=== PATIENT | female | born 1965 | race Caucasian/White ===

== ENCOUNTER 2023-03-18 12:21 | Emergency (ER) | payer OTHER ==
[2023-03-18 12:51] VITALS: RESP 16; TEMP 98.7
--- NOTE | 2023-03-18 15:25 | ED ---
General Adult HPI - General Chief complaint: Psychiatric Symptoms Stated complaint: Mental Health Time Seen by Provider: 03/18/23 12:39 Source: patient, EMS Mode of arrival: EMS Limitations: no limitations - History of Present Illness Initial comments: This is a 57-year-old female with a past medical history including bipolar disorder, anxiety, depression presented emergency department for suicidal ideations. The patient is reportedly homeless and stated that she has been living on the streets for several months to years. The patient stated that she has several weeks of suicidal ideation and stated that "I'm just tired of everything and living on the street." The patient stated that she does have a plan to cut her wrists and take all of her pills. The patient was however resting in bed comfortably without any further distress. The patient stated that she has never been admitted to the psychiatric hospital for evaluation. - Related Data Allergies Allergy/AdvReac Type Severity Reaction Status Date / Time No Known Allergies Allergy Verified 03/18/23 12:51 Review of Systems ROS Statement: Those systems with pertinent positive or pertinent negative responses have been documented in the HPI. ROS Other: All systems not noted in ROS Statement are negative. Past Medical History Past Medical History: Thyroid Disorder History of Any Multi-Drug Resistant Organisms: None Reported Past Psychological History: ADD/ADHD, Anxiety, Bipolar, Depression Smoking Status: Current some day smoker, Light tobacco smoker Past Alcohol Use History: None Reported, Rare Past Drug Use History: Marijuana General Exam Limitations: no limitations General appearance: alert, in no apparent distress Head exam: Present: atraumatic, normocephalic, normal inspection Eye exam: Present: normal appearance, PERRL Pupils: Present: normal accommodation ENT exam: Present: normal exam, normal oropharynx, mucous membranes moist Neck exam: Present: normal inspection, full ROM Respiratory exam: Present: normal lung sounds bilaterally Cardiovascular Exam: Present: regular rate, normal rhythm, normal heart sounds GI/Abdominal exam: Present: soft, normal bowel sounds Extremities exam: Present: normal inspection, full ROM Back exam: Present: normal inspection, full ROM Neurological exam: Present: alert, oriented X3, CN II-XII intact Psychiatric exam: Present: depressed, suicidal ideation Skin exam: Present: warm, dry Course Vital Signs 03/18/23 03/18/23 12:38 15:56 Temperature 98.7 F 98.7 F Pulse Rate 70 86 Respiratory 16 16 Rate Blood Pressure 129/95 129/76 O2 Sat by Pulse 97 98 Oximetry Medical Decision Making - Medical Decision Making Was pt. sent in by a medical professional or institution (KRISTIN Baxter, SLD TEACHER, urgent care, hospital, or senior care...) When possible be specific @ -No Did you speak to anyone other than the patient for history (EMS, parent, family, police, friend...)? What history was obtained from this source @ -No Did you review nursing and triage notes (agree or disagree)? Why? @ -I reviewed and agree with nursing and triage notes Were old charts reviewed (outside hosp., previous admission, EMS record, old EKG, old radiological studies, urgent care reports/EKG's, senior care records)? Report findings @ -No old charts were reviewed Differential Diagnosis (chest pain, altered mental status, abdominal pain women, abdominal pain men, vaginal bleeding, weakness, fever, dyspnea, syncope, headache, dizziness, GI bleed, back pain, seizure, CVA, palpatations, mental health)? @ -Acute psychosis, homelessness, depression, anxiety, suicidal ideation EKG interpreted by me (3pts min.). @ -None X-rays interpreted by me (1pt min.). @ -None done CT interpreted by me (1pt min.). @ -None done U/S interpreted by me (1pt. min.). @ -None done What testing was considered but not performed or refused? (CT, X-rays, U/S, labs)? Why? @ -None What meds were considered but not given or refused? Why? @ -None Did you discuss the management of the patient with other professionals (professionals i.e. KRISTIN Baxter, SLD TEACHER, lab, RT, psych nurse, social director, security solutions engineer, teacher, deputy probation officer, briefcase sewer)? Give summary @ -Yes, I did speak with the EPS. The patient did clear the patient to be discharged with a safety plan attempted but the patient did not agree to this safety plan and refused it. EPS did state that there was no inpatient criteria and the patient could be safely discharged. Was smoking cessation discussed for >3mins.? @ -No Was critical care preformed (if so, how long)? @ -No Were there social determinants of health that impacted care today? How? (Homelessness, low income, unemployed, alcoholism, drug addiction, transportation, low edu. Level, literacy, decrease access to med. care, [facility], rehab)? @ -Homelessness Was there de-escalation of care discussed even if they declined (Discuss DNR or withdrawal of care, Hospice)? DNR status @ -No What co-morbidities impacted this encounter? (DM, HTN, Smoking, COPD, CAD, Cancer, CVA, ARF, Chemo, Hep., AIDS, mental health diagnosis, sleep apnea, morbid obesity)? @ -Bipolar disorder, anxiety, depression Was patient admitted / discharged? Hospital course, mention meds given and route, prescriptions, significant lab abnormalities, going to OR and other pertinent info. @ -The patient was seen and evaluated in the emergency department. Physical exam, the patient was resting in bed without any acute distress. Vital signs admission were stable. The patient was medically cleared with a breath alcohol of 0. The patient was seen and evaluated by EPS and did state that the patient could be safely discharged home as there was no inpatient criteria. The patient was argumentative against this and didn't have any further needs for inpatient at this time. The patient was ultimately discharged in stable condition. Undiagnosed new problem with uncertain prognosis? @ -No Drug Therapy requiring intensive monitoring for toxicity (Heparin, Nitro, Insulin, Cardizem)? @ -No Were any procedures done? @ -No Diagnosis/symptom? @ -Anxiety, depression, homelessness Acute, or Chronic, or Acute on Chronic? @ -Chronic Uncomplicated (without systemic symptoms) or Complicated (systemic symptoms)? @ -Uncomplicated Side effects of treatment? @ -No Exacerbation, Progression, or Severe Exacerbation? @ -No Poses a threat to life or bodily function? How? (Chest pain, [place], [place], pneumonia, PE, COPD, DKA, ARF, appy, cholecystitis, CVA, Diverticulitis, Homicidal, Suicidal, threat to staff... and all critical care pts) @ -No Disposition Clinical Impression: Depression, Bipolar disorder, Homelessness Disposition: HOME SELF-CARE Condition: Stable Instructions (If sedation given, give patient instructions): Depression Management for Older Adults (ED), Suicide Prevention (ED) Is patient prescribed a controlled substance at d/c from ED?: No Referrals: Reina Gaona MD [Primary Care Provider] - 1-2 days Time of Disposition: 15:30
[2023-03-18 15:58] VITALS: BP 129/76; PULSE 86
== END 2023-03-18 21:16 | disposition home or self-care (01) ==
LOC: EC 12:21
DX: F31.9 Bipolar disorder, unspecified (principal); Z59.02 Unsheltered homelessness; F41.9 Anxiety disorder, unspecified; F17.200 Nicotine dependence, unspecified, uncomplicated; F12.90 Cannabis use, unspecified, uncomplicated
CPT/HCPCS: 82075; 99285

== ENCOUNTER 2023-03-18 16:06 | Inpatient (IN) | payer MEDICAID, OTHER ==
[2023-03-18] MEDS ORDERED: ACTIVATED CHARCOAL-SORBITOL 50 GM/240 ML BOTTLE PO STA (16:20)
[2023-03-18 17:39] LABS: Basophils # (A) 0.1 k/uL (0-0.2); Basophils % (A) 1 %; Eosinophils # (A) 0.4 k/uL (0-0.7); Eosinophils % (A) 4 %; HCT 39.6 % (34.0-46.0); HGB 13.3 gm/dL (11.4-16.0); Lymphocytes # (A) 4.2 k/uL (1.0-4.8); Lymphocytes % (A) 36 %; MCHC 33.5 g/dL (31.0-37.0); MCV 83.6 fL (80.0-100.0); Mean Platelet Volume 7.2; Monocytes # (A) 0.6 k/uL (0-1.0); Monocytes % (A) 5 %; Neutrophils % (A) 51 %; Platelet Count 306 k/uL (150-450); RBC 4.74 m/uL (3.80-5.40); RDW 15.4 % (11.5-15.5); WBC 11.7 k/uL (3.8-10.6)
[2023-03-18 17:53] LABS: ALT 58 U/L (4-34); AST 42 U/L (14-36); Acetaminophen <10.0 ug/mL; African American GFR (CKD) >90 (>60 ml/min/1.73 sqM); Albumin 4.3 g/dL (3.5-5.0); Alcohol <10 mg/dL; Alkaline Phosphatase 154 U/L (38-126); Anion Gap 12 mmol/L; Blood Urea Nitrogen 12 mg/dL (7-17); Calcium 9.7 mg/dL (8.4-10.2); Carbon Dioxide 23 mmol/L (22-30); Chloride 102 mmol/L (98-107); Glucose 128 mg/dL (74-99); Lipase 95 U/L (23-300); Magnesium 2.3 mg/dL (1.6-2.3); Non-African American GFR(CKD) 81 (>60 ml/min/1.73 sqM); Potassium 4.2 mmol/L (3.5-5.1); Salicylate <1.0 mg/dL; Sodium 137 mmol/L (137-145); Total Bilirubin 0.5 mg/dL (0.2-1.3); Total Protein 7.5 g/dL (6.3-8.2)
--- NOTE | 2023-03-18 19:16 | ED ---
General Adult HPI - General Source: patient Mode of arrival: ambulatory Limitations: no limitations <Edinson Morrison - Last Filed: 03/18/23 19:14> <Johnathon Kuo - Last Filed: 03/19/23 08:15> - General Chief complaint: Overdose Stated complaint: overdose Time Seen by Provider: 03/18/23 16:13 - History of Present Illness Initial comments: This is a 57-year-old female who was just seen in the emergency department by myself for suicidal ideation and homelessness. The patient had been recently cleared by EPS to be discharged home and to follow up with [facility] as she previously had contact with. The patient was aggressive towards this and walked out of the emergency department stating "nobody will help me and I can't get a call anywhere." When the patient went to the waiting room, it was witnessed that the patient swallowed an entire bottle of multiple pills that she had with her. The patient and checked into the emergency department right after and said "if nobody will help me than I'll make someone help me." The patient on arrival denied any acute pain or complaints and was resting in bed, still aggressive toward staff. Per the previous EPS note, the patient did have multiple pills with her including levothyroxin and what to do however the it was unknown what pills were in her container containing multiple different medications. (Edinson Morrison) - Related Data Home Medications Medication Instructions Recorded Confirmed Atorvastatin [Lipitor] 20 mg PO DAILY 03/18/23 03/18/23 Ergocalciferol [Vitamin D2 (1250 1,250 mcg PO WEEKLY 03/18/23 03/18/23 Mcg = 11025 Iu)] FLUoxetine HCL 80 mg PO DAILY 03/18/23 03/18/23 Fluticasone Nasal [place] [Flonase 1 spr EA NOSTRIL DAILY 03/18/23 03/18/23 Nasal [place]] Levothyroxine Sodium 100 mcg PO DAILY 03/18/23 03/18/23 Loratadine 10 mg PO DAILY 03/18/23 03/18/23 Lurasidone [Latuda] 20 mg PO HS 03/18/23 03/18/23 Meloxicam [Mobic] 15 mg PO DAILY PRN 03/18/23 03/18/23 Montelukast [Singulair] 10 mg PO DAILY 03/18/23 03/18/23 buPROPion XL [Wellbutrin XL] 150 mg PO DAILY 03/18/23 03/18/23 buPROPion XL [Wellbutrin XL] 300 mg PO DAILY 03/18/23 03/18/23 hydrOXYzine HCL [Atarax] 50 mg PO DAILY PRN 03/18/23 03/18/23 lamoTRIgine [LaMICtal] 200 mg PO DAILY 03/18/23 03/18/23 Allergies Allergy/AdvReac Type Severity Reaction Status Date / Time No Known Allergies Allergy Verified 03/18/23 16:41 Review of Systems ROS Other: All systems not noted in ROS Statement are negative. <Edinson Morrison - Last Filed: 03/18/23 19:14> ROS Other: All systems not noted in ROS Statement are negative. <Johnathon Kuo - Last Filed: 03/19/23 08:15> ROS Statement: Those systems with pertinent positive or pertinent negative responses have been documented in the HPI. Past Medical History Past Medical History: Thyroid Disorder History of Any Multi-Drug Resistant Organisms: None Reported Past Psychological History: ADD/ADHD, Anxiety, Bipolar, Depression Smoking Status: Current some day smoker, Light tobacco smoker Past Alcohol Use History: None Reported, Rare Past Drug Use History: Marijuana <Edinson Morrison - Last Filed: 03/18/23 19:14> General Exam Limitations: no limitations General appearance: alert, in no apparent distress Head exam: Present: atraumatic, normocephalic, normal inspection Eye exam: Present: normal appearance, PERRL Pupils: Present: normal accommodation ENT exam: Present: normal exam, normal oropharynx, mucous membranes moist Neck exam: Present: normal inspection, full ROM Respiratory exam: Present: normal lung sounds bilaterally Cardiovascular Exam: Present: regular rate, normal rhythm, normal heart sounds GI/Abdominal exam: Present: soft, normal bowel sounds Extremities exam: Present: normal inspection, full ROM Back exam: Present: normal inspection, full ROM Neurological exam: Present: alert, oriented X3, CN II-XII intact Psychiatric exam: Present: agitated Skin exam: Present: warm, dry <Edinson Morrison - Last Filed: 03/18/23 19:14> Course Vital Signs 08/07/23 08/07/23 08/07/23 16:07 17:44 17:45 Temperature 98.8 F Pulse Rate 71 Respiratory 18 Rate Blood Pressure 126/82 126/82 O2 Sat by Pulse 95 93 L 90 L Oximetry 03/18/23 03/18/23 03/18/23 18:00 18:15 18:30 Temperature Pulse Rate 78 Respiratory 20 Rate Blood Pressure 132/83 126/92 131/99 O2 Sat by Pulse 88 L 90 L Oximetry 03/18/23 03/18/23 03/18/23 18:45 19:00 19:15 Temperature Pulse Rate 84 69 68 Respiratory 22 13 15 Rate Blood Pressure 149/96 154/86 133/85 O2 Sat by Pulse 96 94 L 94 L Oximetry 03/18/23 03/18/23 03/18/23 19:30 19:45 20:00 Temperature Pulse Rate 73 78 68 Respiratory 16 24 19 Rate Blood Pressure 116/80 127/85 126/95 O2 Sat by Pulse 93 L 95 92 L Oximetry 03/18/23 03/18/23 03/18/23 20:15 20:30 20:45 Temperature Pulse Rate 80 80 68 Respiratory 23 17 17 Rate Blood Pressure 117/83 126/90 117/79 O2 Sat by Pulse 95 94 L 93 L Oximetry 03/18/23 03/18/23 03/18/23 21:00 22:00 22:30 Temperature Pulse Rate 68 78 77 Respiratory 18 16 16 Rate Blood Pressure 104/83 123/88 114/88 O2 Sat by Pulse 93 L 93 L 93 L Oximetry 03/18/23 03/18/23 03/18/23 22:45 23:00 23:15 Temperature Pulse Rate 80 80 80 Respiratory 16 16 16 Rate Blood Pressure 123/77 111/61 112/75 O2 Sat by Pulse 94 L 93 L 93 L Oximetry 03/19/23 03/19/23 01:00 07:43 Temperature Pulse Rate 78 95 Respiratory 16 18 Rate Blood Pressure 110/72 113/86 O2 Sat by Pulse 93 L Oximetry EKG Findings - EKG Comments: EKG Findings:: An EKG was obtained and was interpreted by myself showing a rate of 87, ID interval 161, QS duration of 94 and QTC of 428. This EKG showed a normal sinus rhythm with no ST segment elevation or depression noted. <Edinson Morrison - Last Filed: 03/18/23 19:14> Medical Decision Making - Lab Data Result diagrams: 03/18/23 16:24 03/18/23 16:24 <TamikoEdinson - Last Filed: 03/18/23 19:14> - Lab Data Result diagrams: 03/18/23 16:24 03/18/23 16:24 <KuoJohnathon - Last Filed: 03/19/23 08:15> - Medical Decision Making Was pt. sent in by a medical professional or institution (, KRISTIN, INFORMATION TECHNOLOGY ADMINISTRATOR, urgent care, hospital, or detention...) When possible be specific @ -No Did you speak to anyone other than the patient for history (EMS, parent, family, police, friend...)? What history was obtained from this source @ -No Did you review nursing and triage notes (agree or disagree)? Why? @ -I reviewed and agree with nursing and triage notes Were old charts reviewed (outside hosp., previous admission, EMS record, old EKG, old radiological studies, urgent care reports/EKG's, detention records)? Report findings @ -No old charts were reviewed Differential Diagnosis (chest pain, altered mental status, abdominal pain women, abdominal pain men, vaginal bleeding, weakness, fever, dyspnea, syncope, headache, dizziness, GI bleed, back pain, seizure, CVA, palpatations, mental h ealth)? @ -Overdose, suicidal ideation, homicide ideation EKG interpreted by me (3pts min.). @ -As above X-rays interpreted by me (1pt min.). @ -None done CT interpreted by me (1pt min.). @ -None done U/S interpreted by me (1pt. min.). @ -None done What testing was considered but not performed or refused? (CT, X-rays, U/S, labs)? Why? @ -None What meds were considered but not given or refused? Why? @ -None Did you discuss the management of the patient with other professionals (professionals i.e. KRISTIN Baxter, INFORMATION TECHNOLOGY ADMINISTRATOR, lab, RT, psych nurse, health social work professor, ekg monitor tech, teacher, budget officer, onsite case manager)? Give summary @ -Yes, EPS was aware of the patient is a just discharged patient. Was smoking cessation discussed for >3mins.? @ -No Was critical care preformed (if so, how long)? @ -No Were there social determinants of health that impacted care today? How? (Homelessness, low income, unemployed, alcoholism, drug addiction, transportation, low edu. Level, literacy, decrease access to med. care, custodial, rehab)? @ -No Was there de-escalation of care discussed even if they declined (Discuss DNR or withdrawal of care, Hospice)? DNR status @ -No What co-morbidities impacted this encounter? (DM, HTN, Smoking, COPD, CAD, Cancer, CVA, ARF, Chemo, Hep., AIDS, mental health diagnosis, sleep apnea, morbid obesity)? @ -Bipolar disorder, anxiety, depression Was patient admitted / discharged? Hospital course, mention meds given and route, prescriptions, significant lab abnormalities, going to OR and other pertinent info. @ -And he patient was seen and evaluated immediately on arrival. Due to the patient's recent ingestion, poison control was contacted and he did recommend immediate charcoal. They recommended further tox screen to ensure that the patient had normal left lites to begin with and recommended 6 hour observation. They did state that the patient could have lethargy from multiple different pills and to monitor her symptoms. The patient was given charcoal successfully and she was lethargic in the emergency department however had normal vital signs. The patient was signed out to Dr. Chamorro pending reevaluation and EPS evaluation. (Edinson Morrison) Was patient admitted / discharged? Hospital course, mention meds given and route, prescriptions, significant lab abnormalities, going to OR and other pertinent info. @ -EPS came down to evaluate the patient and determined the patient needed to be admitted patient be transferred up to the psychiatric floor Undiagnosed new problem with uncertain prognosis? @ -[No] Drug Therapy requiring intensive monitoring for toxicity (Heparin, Nitro, Insulin, Cardizem)? @ -[No] Were any procedures done? @ -[No] Diagnosis/symptom? @ -Overdose Acute, or Chronic, or Acute on Chronic? @ -Acute Uncomplicated (without systemic symptoms) or Complicated (systemic symptoms)? @ -complicated Side effects of treatment? @ -[No] Exacerbation, Progression, or Severe Exacerbation? @ -[No] Poses a threat to life or bodily function? How? (Chest pain, [place], [place], pneumonia, PE, COPD, DKA, ARF, appy, cholecystitis, CVA, Diverticulitis, Homicidal, Suicidal, threat to staff... and all critical care pts) @ -[No] Diagnosis/symptom? @ -Suicide attempt Acute, or Chronic, or Acute on Chronic? @ -Acute Uncomplicated (without systemic symptoms) or Complicated (systemic symptoms)? @ -Complicated Side effects of treatment? @ -[none] Exacerbation, Progression, or Severe Exacerbation] @ -[no] Poses a threat to life or bodily function? @ -Yes this could lead to the patient's (Johnathon Kuo) - Lab Data Lab Results 03/18/23 03/18/23 Range/Units 16:24 16:24 WBC 11.7 H (3.8-10.6) k/uL RBC 4.74 (3.80-5.40) m/uL Hgb 13.3 (11.4-16.0) gm/dL Hct 39.6 (34.0-46.0) % MCV 83.6 (80.0-100.0) fL MCH 28.0 (25.0-35.0) pg MCHC 33.5 (31.0-37.0) g/dL RDW 15.4 (11.5-15.5) % Plt Count 306 (150-450) k/uL MPV 7.2 Neutrophils % 51 % Lymphocytes % 36 % Monocytes % 5 % Eosinophils % 4 % Basophils % 1 % Neutrophils # 6.0 (1.3-7.7) k/uL Lymphocytes # 4.2 (1.0-4.8) k/uL Monocytes # 0.6 (0-1.0) k/uL Eosinophils # 0.4 (0-0.7) k/uL Basophils # 0.1 (0-0.2) k/uL Sodium 137 (137-145) mmol/L Potassium 4.2 (3.5-5.1) mmol/L Chloride 102 (98-107) mmol/L Carbon Dioxide 23 (22-30) mmol/L Anion Gap 12 mmol/L BUN 12 (7-17) mg/dL Creatinine 0.80 (0.52-1.04) mg/dL Est GFR (CKD-EPI)AfAm >90 (>60 ml/min/1.73 sqM) Est GFR (CKD-EPI)NonAf 81 (>60 ml/min/1.73 sqM) Glucose 128 H (74-99) mg/dL Calcium 9.7 (8.4-10.2) mg/dL Magnesium 2.3 (1.6-2.3) mg/dL Total Bilirubin 0.5 (0.2-1.3) mg/dL AST 42 H (14-36) U/L ALT 58 H (4-34) U/L Alkaline Phosphatase 154 H (38-126) U/L Total Protein 7.5 (6.3-8.2) g/dL Albumin 4.3 (3.5-5.0) g/dL Lipase 95 (23-300) U/L Salicylates <1.0 mg/dL Acetaminophen <10.0 ug/mL Serum Alcohol <10 mg/dL Disposition <Edinson Morrison - Last Filed: 03/18/23 19:14> Time of Disposition: 08:15 <Johnathon Kuo - Last Filed: 03/19/23 08:15> Clinical Impression: Suicide attempt, Overdose Disposition: ADMITTED IP TO THIS HOSP Referrals: Reina Gaona MD [Primary Care Provider] - 1-2 days
--- NOTE | 2023-03-19 00:49 | XR ---
EXAM: XR Chest, 2 Views CLINICAL HISTORY: ITS.REASON XR Reason: cough TECHNIQUE: Frontal and lateral views of the chest. COMPARISON: No relevant prior studies available. FINDINGS: Lungs: No consolidation. No overt edema. Pleural space: No pleural effusion. No pneumothorax. Heart: Unremarkable. No cardiomegaly. Bones/joints: Unremarkable. No fracture or malalignment. IMPRESSION: No acute cardiopulmonary abnormality.
[2023-03-19 08:59] LABS: Appearance,Urine Clear (Clear); Bacteria,Urine Rare /hpf; Bilirubin,Urine Negative (Negative); Blood,Urine Negative (Negative); Color,Urine Light Red; Glucose,Urine (UA) Negative (Negative); Ketones,Urine Negative (Negative); Leukocyte Esterase,Urine Large (Negative); Nitrite,Urine Negative (Negative); PH, Urine 6.5 (5.0-8.0); Protein,Urine Trace (Negative); RBC,Urine 5 /hpf (0-5); Specific Gravity,Urine 1.025 (1.001-1.035); Squamous Epithelial Cell,Urine 4 /hpf (0-4); Urobilinogen,Urine <2.0 mg/dL (<2.0); WBC,Urine 35 /hpf (0-5)
[2023-03-19 09:02] LABS: Amphetamine Screen,Urine Not Detected (NotDetected); Barbiturate Screen,Urine Not Detected (NotDetected); Benzodiazepines Screen,Urine Detected (NotDetected); Cocaine Screen,Urine Not Detected (NotDetected); Methadone Screen, Urine Not Detected (NotDetected); Opiate Screen,Urine Not Detected (NotDetected); Oxycodone Screen, Urine Not Detected (NotDetected); Phencyclidine Screen,Urine Not Detected (NotDetected); Tricyclic Antidepressant,Urine Not Detected (NotDetected); Urn Cannabinoid Scrn Not Detected (NotDetected)
[2023-03-19] MEDS ORDERED: MAGNESIUM HYDROXIDE 2,400 MG/30 ML CUP PO PRN (10:30)
[2023-03-19] MEDS ORDERED: LORazepam 2 MG/ML INJ IM PRN ×2 (10:30→14:21)
[2023-03-19] MEDS ORDERED: HALOPERIDOL LACTATE 5 MG/ML 1 ML VIAL IM PRN (10:30)
[2023-03-19] MEDS ORDERED: LORazepam 1 MG TAB PO PRN (10:30)
[2023-03-19] MEDS ORDERED: MAG HYDROX/AL HYDROX/SIMETH 30 ML CUP PO PRN (10:30)
[2023-03-19] MEDS ORDERED: haloperidoL 5 MG TAB PO PRN (10:30)
--- NOTE | 2023-03-19 14:26 | P.HP ---
Psychiatric H&P - . H&P Date: 03/19/23 History & Physical: Allergies Allergy/AdvReac Type Severity Reaction Status Date / Time No Known Allergies Allergy Verified 03/19/23 13:53 Vital Signs Temp 98.8 F 03/18/23 16:07 Pulse 105 H 03/19/23 08:56 Resp 18 03/19/23 08:56 BP 117/87 03/19/23 08:56 Pulse Ox 97 03/19/23 08:56 FiO2 Intake & Output 03/18/23 03/19/23 03/19/23 18:59 06:59 18:59 Weight 58.967 kg Laboratory Last Values WBC 11.7 k/uL (3.8-10.6) H 03/18/23 16:24 RBC 4.74 m/uL (3.80-5.40) 03/18/23 16:24 Hgb 13.3 gm/dL (11.4-16.0) 03/18/23 16:24 Hct 39.6 % (34.0-46.0) 03/18/23 16:24 MCV 83.6 fL (80.0-100.0) 03/18/23 16:24 MCH 28.0 pg (25.0-35.0) 03/18/23 16:24 MCHC 33.5 g/dL (31.0-37.0) 03/18/23 16:24 RDW 15.4 % (11.5-15.5) 03/18/23 16:24 Plt Count 306 k/uL (150-450) 03/18/23 16:24 MPV 7.2 03/18/23 16:24 Neutrophils % 51 % 03/18/23 16:24 Lymphocytes % 36 % 03/18/23 16:24 Monocytes % 5 % 03/18/23 16:24 Eosinophils % 4 % 03/18/23 16:24 Basophils % 1 % 03/18/23 16:24 Neutrophils # 6.0 k/uL (1.3-7.7) 03/18/23 16:24 Lymphocytes # 4.2 k/uL (1.0-4.8) 03/18/23 16:24 Monocytes # 0.6 k/uL (0-1.0) 03/18/23 16:24 Eosinophils # 0.4 k/uL (0-0.7) 03/18/23 16:24 Basophils # 0.1 k/uL (0-0.2) 03/18/23 16:24 Sodium 137 mmol/L (137-145) 03/18/23 16:24 Potassium 4.2 mmol/L (3.5-5.1) 03/18/23 16:24 Chloride 102 mmol/L (98-107) 03/18/23 16:24 Carbon Dioxide 23 mmol/L (22-30) 03/18/23 16:24 Anion Gap 12 mmol/L 03/18/23 16:24 BUN 12 mg/dL (7-17) 03/18/23 16:24 Creatinine 0.80 mg/dL (0.52-1.04) 03/18/23 16:24 Est GFR (CKD-EPI)AfAm >90 (>60 ml/min/1.73 sqM) 03/18/23 16:24 Est GFR (CKD-EPI)NonAf 81 (>60 ml/min/1.73 sqM) 03/18/23 16:24 Glucose 128 mg/dL (74-99) H 03/18/23 16:24 Calcium 9.7 mg/dL (8.4-10.2) 03/18/23 16:24 Magnesium 2.3 mg/dL (1.6-2.3) 03/18/23 16:24 Total Bilirubin 0.5 mg/dL (0.2-1.3) 03/18/23 16:24 AST 42 U/L (14-36) H 03/18/23 16:24 ALT 58 U/L (4-34) H 03/18/23 16:24 Alkaline Phosphatase 154 U/L (38-126) H 03/18/23 16:24 Total Protein 7.5 g/dL (6.3-8.2) 03/18/23 16:24 Albumin 4.3 g/dL (3.5-5.0) 03/18/23 16:24 Lipase 95 U/L (23-300) 03/18/23 16:24 Urine Color Light Red 03/19/23 08:01 Urine Appearance Clear (Clear) 03/19/23 08:01 Urine pH 6.5 (5.0-8.0) 03/19/23 08:01 Ur Specific [place] 1.025 (1.001-1.035) 03/19/23 08:01 Urine Protein Trace (Negative) H 03/19/23 08:01 Urine Glucose (UA) Negative (Negative) 03/19/23 08:01 Urine Ketones Negative (Negative) 03/19/23 08:01 Urine Blood Negative (Negative) 03/19/23 08:01 Urine Nitrite Negative (Negative) 03/19/23 08:01 Urine Bilirubin Negative (Negative) 03/19/23 08:01 Urine Urobilinogen <2.0 mg/dL (<2.0) 03/19/23 08:01 Ur Leukocyte Esterase Large (Negative) H 03/19/23 08:01 Urine RBC 5 /hpf (0-5) 03/19/23 08:01 Urine WBC 35 /hpf (0-5) H 03/19/23 08:01 Ur Squamous Epith Cells 4 /hpf (0-4) 03/19/23 08:01 Urine Bacteria Rare /hpf (None) H 03/19/23 08:01 Salicylates <1.0 mg/dL 03/18/23 16:24 Urine Opiates Screen Not Detected (NotDetected) 03/19/23 08:01 Ur Oxycodone Screen Not Detected (NotDetected) 03/19/23 08:01 Urine Methadone Screen Not Detected (NotDetected) 03/19/23 08:01 Ur Propoxyphene Screen Not Detected (NotDetected) 03/19/23 08:01 Acetaminophen <10.0 ug/mL 03/18/23 16:24 Ur Barbiturates Screen Not Detected (NotDetected) 03/19/23 08:01 U Tricyclic Antidepress Not Detected (NotDetected) 03/19/23 08:01 Ur Phencyclidine Scrn Not Detected (NotDetected) 03/19/23 08:01 Ur Amphetamines Screen Not Detected (NotDetected) 03/19/23 08:01 U Methamphetamines Scrn Not Detected (NotDetected) 03/19/23 08:01 U Benzodiazepines Scrn Detected (NotDetected) H 03/19/23 08:01 Urine Cocaine Screen Not Detected (NotDetected) 03/19/23 08:01 U Marijuana (THC) Screen Not Detected (NotDetected) 03/19/23 08:01 Serum Alcohol <10 mg/dL 03/18/23 16:24 Coronavirus (PCR) Not Detected (Not Detectd) 03/19/23 07:45 03/19/23 14:25 IDENTIFYING DATA: Patient is a , unemployed, 57-year-old homeless female who presents to the hospital on 03/19/2023 after intentionally overdosing on medication. HPI: Patient presented to the hospital initially on 03/18/23 however was disch arged with an appropriate safety plan and to follow up with [facility] as she initially presented with concerns for her homelessness and suicidal ideation. However, the patient the patient became very agitated when being discharged and was yelling. Patient apparently went to the waiting room and overdosed on an unknown bottle of medication. The patient was administered charcoal and monitored in the emergency department overnight. She reported that this was an intentional suicide attempt. The patient was subsequently admitted voluntarily on to the psychiatric unit. Upon evaluation on the psychiatric unit, the patient reports that she is just "tired of everything." She reports that she wants help with her mental health because she "am not the same person after 2013 when numerous things happen to me." She reports that during that year, she was , lost her job, and had lost her mother due to cancer. The patient states that since then, she has been unable to function. She reports little support. She states that she is currently homeless. However, the patient is unable to provide any clear symptoms of depressive disorder or bipolar disorder. She just states that she wants help with her "mind because it is not working." She states that she is unable to function normally. The patient then states that if she is being ignored by this provider, she is going to get angry. She reports that if she gets angry she will do something like overdose again. She does not endorse any significant psychotic symptoms. She reports no auditory or visual hallucinations. She denies any paranoia or other delusions. PAST PSYCHIATRIC HISTORY: Patient states that she is depressed, anxious, and bipolar. The patient has previous trials of numerous medications including Wellbutrin, Lamictal, Prozac, Vistaril. She reports previous to trying Risperdal as well. She reports a remote history of psychiatric hospitalization. She is currently open with [facility]. Patient has history of overdose. PMH: Past Medical History: Thyroid Disorder History of Any Multi-Drug Resistant Organisms: None Reported Past Psychological History: ADD/ADHD, Anxiety, Bipolar, Depression Smoking Status: Current some day smoker, Light tobacco smoker Past Alcohol Use History: None Reported, Rare Past Drug Use History: Marijuana ALLERGIES: NO KNOWN DRUG ALLERGIES CHEMICAL DEPENDENCY HISTORY: Patient reports occasional tobacco use. She rep orts rare alcohol use. History of marijuana use. FAMILY PSYCHIATRIC/SUBSTANCE USE HISTORY: Unable to assess SOCIAL HISTORY: Patient is currently homeless. She reports no social supports. States that her children hate her. Reports that she graduated college and was working in IT in the past. MENTAL STATUS EXAM: General Appearance: Patient appears to be stated age is alert, directable, and attempts to cooperate. Patient appears to have disheveled hygiene and grooming. Behavior: Patient is lying down in bed space psychomotor agitation. Speech: Patient's speech is rapid and loud. Mood/Affect: Patient reports their mood is "I get very angry," affect is obstinate and childlike Suicidality/Homicidality: Patient endorses suicidal ideation when she is angry. Reports no homicidal ideation. Perceptions: Patient denies any visual hallucinations and denies any auditory hallucinations Though content/process: Patient is goal oriented. Fixated on housing situation. Memory and concentration: AOX3, grossly intact for the purposes of this session. Can spell "WORLD" backwards Judgment and insight: Grossly poor Frustration tolerance and impulse control: Very poor. STRENGTHS/WEAKNESSES: Unable to identify patient's strength. Weakness is that the patient has very poor ego integrity. INTELLECT: average IMPRESSIONS: Adjustment disorder with mixed disturbance of mood and conduct Cluster B personality disorder -narcissistic personality traits and borderline personality traits Rule out malingering PLAN: -Patient is admitted under voluntary status to [facility] for stabilization of psychiat simon symptoms and safety. Patient signed adult voluntary form and medication consent and is placed in patient's chart. -Medications : We will hold the patient's Wellbutrin as the patient displays significant irritability. Restart Vistaril 50 mg by mouth every 6 hours when necessary for anxiety Restart Lamictal at 25 mg by mouth daily for mood stabilization Start Seroquel 100 mg by mouth at bedtime for mood stabilization -Ativan and Haldol PRN for agitation/aggression -Patient was informed of the risks, benefits and side effects of the medication and patient verbally consented to taking the medications. -Internal Medicine consult to perform medical evaluation and physical. -NRT - nicotine patch -SW on board for discharge planning. Encourage patient to participate in groups to work on coping skills. 03/19/23 14:25
[2023-03-19] MEDS ORDERED: CALCIUM CARBONATE 500 MG CHEWABLE PO PRN (14:28)
[2023-03-19] MEDS: QUEtiapine 100 MG TAB PO SCH (21:16)
[2023-03-20] MEDS: PANTOPRAZOLE 40 MG TABLET PO SCH (08:54)
[2023-03-20] MEDS: LORATADINE 10 MG TAB PO SCH (08:54)
[2023-03-20] MEDS: MONTELUKAST 10 MG TAB PO SCH (08:54)
[2023-03-20] MEDS: LEVOTHYROXINE 100 MCG TAB PO SCH (08:54)
[2023-03-20] MEDS: FLUTICASONE 50MCG/SPRAY NASAL 16GM EA NOSTRIL SCH (08:54)
[2023-03-20] MEDS: ATORVASTATIN 20 MG TAB PO SCH (08:54)
[2023-03-20] MEDS: hydrOXYzine pamoate 25 MG CAP PO PRN (08:58)
[2023-03-20] MEDS ORDERED: lamoTRIgine 25 MG TAB PO SCH (09:00)
[2023-03-20 11:02] LABS: LDL Cholesterol,Calculated 170.5 mg/dL (0.0-131.0)
--- NOTE | 2023-03-20 12:45 | P.MDCNMH ---
History of Present Illness H&P Date: 03/20/23 History of present illness; patient is a 57-year-old lady with past medical hist ory significant for hyperlipidemia, hypothyroidism, hypertension who presented to the ER for suicidal ideations, patient was worked up in the ER and was supposed to be discharged with a safety plan. Patient became dissatisfied by that plan and went out of the ER and took a whole bottle of pills with aim to hurt herself. Patient was again worked up in the ER Initial lab work done in the ER showed the baby with serial percent, hemoglobin 13.3, platelet count 306, sodium 137, potassium 4.2, glucose 128, HbA1c 6.2, AST 42, AST 58, triglyceride 173, LDL 170 patient was then admitted to inpatient psych for further evaluation and treatment REVIEW OF SYSTEMS: CONSTITUTIONAL: No fever, no malaise, no fatigue. HEENT: No recent visual problems or hearing problems. Denied any sore throat. CARDIOVASCULAR: No chest pain, orthopnea, PND, no palpitations, no syncope. PULMONARY: No shortness of breath, no cough, no hemoptysis. GASTROINTESTINAL: No diarrhea, no nausea, no vomiting, no abdominal pain. NEUROLOGICAL: No headaches, no weakness, no numbness. HEMATOLOGICAL: Denies any bleeding or petechiae. GENITOURINARY: Denies any burning micturition, frequency, or urgency. MUSCULOSKELETAL/RHEUMATOLOGICAL: Denies any joint pain, swelling, or any muscle pain. ENDOCRINE: Denies any polyuria or polydipsia. The rest of the 14-point review of systems is negative. PHYSICAL EXAMINATION: GENERAL: The patient is alert and oriented x3, not in any acute distress. Well developed, well nourished. HEENT: Pupils are round and equally reacting to light. EOMI. No scleral icterus. No conjunctival pallor. Normocephalic, atraumatic. No pharyngeal erythema. No thyromegaly. CARDIOVASCULAR: S1 and S2 present. No murmurs, rubs, or gallops. PULMONARY: Chest is clear to auscultation, no wheezing or crackles. ABDOMEN: Soft, nontender, nondistended, normoactive bowel sounds. No palpable organomegaly. MUSCULOSKELETAL: No joint swelling or deformity. EXTREMITIES: No cyanosis, clubbing, or pedal edema. NEUROLOGICAL: Gross neurological examination did not reveal any focal deficits. SKIN: No rashes. Assessment and plan Suicidal ideation Hyperlipidemia Hypothyroidism prediabetes Monitor vital signs Monitor CBC Suicide precautions Elopement precautions Continue psych meds per psychiatry team Resume home meds Labs and medication were reviewed.. Continue same treatment. Continue with symptomatic treatment. Resume home medication. Monitor labs and vitals. DVT and GI prophylaxis. Further recommendations as per clinical course of the patient Dictation was produced using RECESS. dictation software. please excuse any grammatical, word or spelling errors. Past Medical History Past Medical History: COPD, Thyroid Disorder History of Any Multi-Drug Resistant Organisms: None Reported Past Surgical History: Section, Tubal Ligation Additional Past Surgical History / Comment(s): C section X2 Past Anesthesia/Blood Transfusion Reactions: Unable to Obtain Past Psychological History: ADD/ADHD, Anxiety, Bipolar, Depression Smoking Status: Former smoker Past Alcohol Use History: None Reported, Rare Past Drug Use History: Marijuana - Past Family History Mother Family Medical History: Unable to Obtain Medications and Allergies Home Medications Medication Instructions Recorded Confirmed Type Atorvastatin [Lipitor] 20 mg PO DAILY 03/18/23 03/18/23 History Ergocalciferol [Vitamin D2 (1250 1,250 mcg PO WEEKLY 03/18/23 03/18/23 History Mcg = 73589 Iu)] FLUoxetine HCL 60 mg PO DAILY 03/18/23 03/19/23 History Fluticasone Nasal [place] [Flonase 1 spr EA NOSTRIL DAILY 03/18/23 03/18/23 History Nasal [place]] Levothyroxine Sodium 100 mcg PO DAILY 03/18/23 03/19/23 History Loratadine 10 mg PO DAILY 03/18/23 03/18/23 History Lurasidone [Latuda] 20 mg PO DAILY 03/18/23 03/19/23 History Meloxicam [Mobic] 15 mg PO DAILY PRN 03/18/23 03/19/23 History Montelukast [Singulair] 10 mg PO DAILY 03/18/23 03/18/23 History buPROPion XL [Wellbutrin XL] 300 mg PO DAILY 03/18/23 03/18/23 History hydrOXYzine HCL [Atarax] 50 mg PO DAILY PRN 03/18/23 03/18/23 History lamoTRIgine [LaMICtal] 200 mg PO DAILY 03/18/23 03/19/23 History Calcium Carb/Magnesium Hydrox 1 each PO TID-W/MEALS PRN 03/19/23 03/19/23 History [Rolaids Ext Str 675-135 mg Chw] Lansoprazole [Prevacid 24Hr] 15 mg PO DAILY 03/19/23 03/19/23 History Allergies Allergy/AdvReac Type Severity Reaction Status Date / Time No Known Allergies Allergy Verified 03/19/23 13:53 Physical Exam Vitals: Vital Signs Temp Pulse Resp BP 03/20/23 06:38 97.6 F 64 14 97/57 Cranial Nerve Examination - Cranial Nerves Cranial Nerve II- Optic: Intact (Cranial nerves 2-12 intact) Cranial Nerve III- Oculomotor: Intact Cranial Nerve IV- Trochlear: Intact Cranial Nerve V- Trigeminal: Intact Cranial Nerve - Abducens: Intact Cranial Nerve VII- Facial: Intact Cranial Nerve VIII- Auditory: Intact Cranial Nerve IX- Glossopharyngeal: Intact Cranial Nerve X- Vagus: Intact Cranial Nerve XI- Accessory: Intact Cranial Nerve XII- Hypoglossal: Intact Results CBC & Chem 7: 03/18/23 16:24 03/18/23 16:24 Labs: Abnormal Lab Results - Last 24 Hours (Table) 03/18/23 03/18/23 Range/Units 16:24 16:24 Hemoglobin A1c 6.2 H (<=6.0) % Triglycerides 173.00 H (0.00-149.00) mg/dL Cholesterol 284.00 H (0.00-200.00) mg/dL LDL Cholesterol, Calc 170.5 H (0.0-131.0) mg/dL HDL Cholesterol 78.90 H (40.00-60.00) mg/dL TSH 5.070 H (0.465-4.680) mIU/L
--- NOTE | 2023-03-20 13:30 | P.PN ---
Progress Note - Text Progress Note Date: 03/20/23 Interval History: Patient was seen resting in bed and was directable and agreeable to speak with medical underwriter in her room. The patient is currently denying any suicidal or homicidal ideation, intention, and/or plan. She is not reporting any auditory or visual hallucinations. She is denying any paranoia or other delusions. She is upset at the line of questioning stating that "if I answered no to all of these things, you're going to kick me out of this hospital." She maintains that she needs help with her "thoughts." She states that no one is helping her and that she is stuck in life. This provider attempted by the patient was psychoeducation on personality disorder and how to appropriately utilize medication skills. However, the patient is very hesitant to engage in therapy and is easily frustrated. Patient seems unwilling to change. Mental Status Exam: General Appearance: Patient appears to be stated age is alert, directable, and cooperative. Disheveled. Behavior: Patient displays elevated psychomotor activity. Speech: Patient's speech is fluent and nonpressured. Loud in volume. Mood/Affect: Mood is "not good I'm always angry," affect is congruent, irritable, and demanding Suicidality/Homicidality: Patient denies any suicidal or homicidal ideation, intention, and/or plan. Perceptions: Patient denies any visual hallucinations and denies any auditory hallucinations Though content/process: [place] helplessness. Demanding. Memory and concentration: AOX3, grossly intact for the purposes of this session Judgment and insight: Poor Frustration tolerance and impulse control: Poor Vital Signs Temp 97.6 F 03/20/23 06:38 Pulse 64 03/20/23 06:38 Resp 14 03/20/23 06:38 BP 97/57 03/20/23 06:38 Pulse Ox 95 03/19/23 11:07 FiO2 Intake & Output 03/19/23 03/20/23 03/20/23 18:59 06:59 18:59 Weight 58.786 kg Laboratory Results - Last 24 Hours 03/18/23 03/18/23 16:24 16:[address] Glu mg/dL 131 Hemoglobin A1c 6.2 H Triglycerides 173.00 H Cholesterol 284.00 H LDL Cholesterol, Calc 170.5 H VLDL Cholesterol, Calc 34.60 HDL Cholesterol 78.90 H Cholesterol/HDL Ratio 3.60 TSH 5.070 H Assessment Adjustment disorder with mixed disturbance of mood and conduct Cluster B personality disorder -narcissistic personality traits and borderline personality traits Rule out malingering Plan: -Patient continues to meet criteria for inpatient psychiatric admission for symptom stabilization and safety. Patient has signed adult voluntary form and medication consent and was placed in patient's chart. -Medications: Increase Lamictal to 25 mg by mouth twice a day for mood stabilization Continue Seroquel 100 mg by mouth at bedtime for mood stabilization -When necessary Ativan and an Haldol for agitation/aggression. -NRT - nicotine patch -SW on board for discharge planning. Encouraged the patient to participate in milieu.
[2023-03-20] MEDS: lamoTRIgine 25 MG TAB PO SCH (20:23)
[2023-03-20] MEDS: QUEtiapine 100 MG TAB PO SCH (20:23)
[2023-03-20] MEDS: IBUPROFEN 600 MG TAB PO PRN (20:26)
[2023-03-20] MEDS: ACETAMINOPHEN TAB 325 MG TAB PO PRN (20:27)
[2023-03-21] MEDS: LEVOTHYROXINE 100 MCG TAB PO SCH (06:26)
[2023-03-21] MEDS: MONTELUKAST 10 MG TAB PO SCH (09:24)
[2023-03-21] MEDS: lamoTRIgine 25 MG TAB PO SCH ×2 (09:24→21:07)
[2023-03-21] MEDS: ATORVASTATIN 20 MG TAB PO SCH (09:24)
[2023-03-21] MEDS: PANTOPRAZOLE 40 MG TABLET PO SCH (09:24)
[2023-03-21] MEDS: LORATADINE 10 MG TAB PO SCH (09:24)
[2023-03-21] MEDS: FLUTICASONE 50MCG/SPRAY NASAL 16GM EA NOSTRIL SCH (09:24)
[2023-03-21] MEDS: MELOXICAM 7.5 MG TAB PO PRN (09:32)
[2023-03-21] MEDS: hydrOXYzine pamoate 25 MG CAP PO PRN (09:33)
--- NOTE | 2023-03-21 12:03 | P.PN ---
Progress Note - Text Progress Note Date: 03/21/23 Interval History: Patient was seen resting in bed and was directable and agreeable to speak with display card writer in her room. The patient remains primarily isolative to herself in her room. She is not endorsing any suicidal or homicidal ideation, intention, and/or plan. She does report she is upset that this provider is not prescribing her her antidepressants. She was informed that due to irritability and overactivation, the medication are not indicated at this time. Furthermore she does not present with any symptoms of melancholy, appetite, or energy problems. She states loudly, "I AM DEPRESSED. I HAVE NO MOTIVATION!" The patient acknowledges she has anger problems however she continues to report that the treatment team is not doing enough for her. She becames very angry when the provider discusses how we are providing her with retirement, food, and therapy and that gratitude and reflection is part of therapy. Patient continues to yell and the interview is terminated. Mental Status Exam: General Appearance: Patient appears to be stated age is alert, and initially dir ectable, and cooperative but becomes very angry and is no longer cooperative. Behavior: Patient displays psychomotor agitation. Speech: Patient's speech is loud. Difficult to interrupt. Mood/Affect: Mood is "I AM DEPRESSED!" Affect is incongruent. Agitated, demanding, expansive. Suicidality/Homicidality: Patient reports no suicidal or homicidal ideation, intention, and/or plan. Perceptions: Patient denies any visual hallucinations and denies any auditory hallucinations Though content/process: Confrontational and oppositional. Precontemplative on change. Memory and concentration: AOX3, grossly intact for the purposes of this session Judgment and insight: Grossly poor Vital Signs Temp 97.4 F L 03/21/23 06:00 Pulse 71 03/21/23 06:00 Resp 18 03/21/23 06:00 BP 88/60 03/21/23 06:00 Pulse Ox 96 03/21/23 06:00 FiO2 Laboratory Results WBC 11.7 k/uL (3.8-10.6) H 03/18/23 16:24 RBC 4.74 m/uL (3.80-5.40) 03/18/23 16:24 Hgb 13.3 gm/dL (11.4-16.0) 03/18/23 16:24 Hct 39.6 % (34.0-46.0) 03/18/23 16:24 MCV 83.6 fL (80.0-100.0) 03/18/23 16:24 MCH 28.0 pg (25.0-35.0) 03/18/23 16:24 MCHC 33.5 g/dL (31.0-37.0) 03/18/23 16:24 RDW 15.4 % (11.5-15.5) 03/18/23 16:24 Plt Count 306 k/uL (150-450) 03/18/23 16:24 MPV 7.2 03/18/23 16:24 Neutrophils % 51 % 03/18/23 16:24 Lymphocytes % 36 % 03/18/23 16:24 Monocytes % 5 % 03/18/23 16:24 Eosinophils % 4 % 03/18/23 16:24 Basophils % 1 % 03/18/23 16:24 Neutrophils # 6.0 k/uL (1.3-7.7) 03/18/23 16:24 Lymphocytes # 4.2 k/uL (1.0-4.8) 03/18/23 16:24 Monocytes # 0.6 k/uL (0-1.0) 03/18/23 16:24 Eosinophils # 0.4 k/uL (0-0.7) 03/18/23 16:24 Basophils # 0.1 k/uL (0-0.2) 03/18/23 16:24 Sodium 137 mmol/L (137-145) 03/18/23 16:24 Potassium 4.2 mmol/L (3.5-5.1) 03/18/23 16:24 Chloride 102 mmol/L (98-107) 03/18/23 16:24 Carbon Dioxide 23 mmol/L (22-30) 03/18/23 16:24 Anion Gap 12 mmol/L 03/18/23 16:24 BUN 12 mg/dL (7-17) 03/18/23 16:24 Creatinine 0.80 mg/dL (0.52-1.04) 03/18/23 16:24 Est GFR (CKD-EPI)AfAm >90 (>60 ml/min/1.73 sqM) 03/18/23 16:24 Est GFR (CKD-EPI)NonAf 81 (>60 ml/min/1.73 sqM) 03/18/23 16:24 Glucose 128 mg/dL (74-99) H 03/18/23 16:[address] Glu mg/dL 131 mg/dL 03/18/23 16:24 Hemoglobin A1c 6.2 % (<=6.0) H 03/18/23 16:24 Calcium 9.7 mg/dL (8.4-10.2) 03/18/23 16:24 Magnesium 2.3 mg/dL (1.6-2.3) 03/18/23 16:24 Total Bilirubin 0.5 mg/dL (0.2-1.3) 03/18/23 16:24 AST 42 U/L (14-36) H 03/18/23 16:24 ALT 58 U/L (4-34) H 03/18/23 16:24 Alkaline Phosphatase 154 U/L (38-126) H 03/18/23 16:24 Total Protein 7.5 g/dL (6.3-8.2) 03/18/23 16:24 Albumin 4.3 g/dL (3.5-5.0) 03/18/23 16:24 Triglycerides 173.00 mg/dL (0.00-149.00) H 03/18/23 16:24 Cholesterol 284.00 mg/dL (0.00-200.00) H 03/18/23 16:24 LDL Cholesterol, Calc 170.5 mg/dL (0.0-131.0) H 03/18/23 16:24 VLDL Cholesterol, Calc 34.60 mg/dL (5.00-40.00) 03/18/23 16:24 HDL Cholesterol 78.90 mg/dL (40.00-60.00) H 03/18/23 16:24 Cholesterol/HDL Ratio 3.60 Ratio 03/18/23 16:24 Lipase 95 U/L (23-300) 03/18/23 16:24 TSH 5.070 mIU/L (0.465-4.680) H 03/18/23 16:24 Urine Color Light Red 03/19/23 08:01 Urine Appearance Clear (Clear) 03/19/23 08:01 Urine pH 6.5 (5.0-8.0) 03/19/23 08:01 Ur Specific [place] 1.025 (1.001-1.035) 03/19/23 08:01 Urine Protein Trace (Negative) H 03/19/23 08:01 Urine Glucose (UA) Negative (Negative) 03/19/23 08:01 Urine Ketones Negative (Negative) 03/19/23 08:01 Urine Blood Negative (Negative) 03/19/23 08:01 Urine Nitrite Negative (Negative) 03/19/23 08:01 Urine Bilirubin Negative (Negative) 03/19/23 08:01 Urine Urobilinogen <2.0 mg/dL (<2.0) 03/19/23 08:01 Ur Leukocyte Esterase Large (Negative) H 03/19/23 08:01 Urine RBC 5 /hpf (0-5) 03/19/23 08:01 Urine WBC 35 /hpf (0-5) H 03/19/23 08:01 Ur Squamous Epith Cells 4 /hpf (0-4) 03/19/23 08:01 Urine Bacteria Rare /hpf (None) H 03/19/23 08:01 Salicylates <1.0 mg/dL 03/18/23 16:24 Urine Opiates Screen Not Detected (NotDetected) 03/19/23 08:01 Ur Oxycodone Screen Not Detected (NotDetected) 03/19/23 08:01 Urine Methadone Screen Not Detected (NotDetected) 03/19/23 08:01 Ur Propoxyphene Screen Not Detected (NotDetected) 03/19/23 08:01 Acetaminophen <10.0 ug/mL 03/18/23 16:24 Ur Barbiturates Screen Not Detected (NotDetected) 03/19/23 08:01 U Tricyclic Antidepress Not Detected (NotDetected) 03/19/23 08:01 Ur Phencyclidine Scrn Not Detected (NotDetected) 03/19/23 08:01 Ur Amphetamines Screen Not Detected (NotDetected) 03/19/23 08:01 U Methamphetamines Scrn Not Detected (NotDetected) 03/19/23 08:01 U Benzodiazepines Scrn Detected (NotDetected) H 03/19/23 08:01 Urine Cocaine Screen Not Detected (NotDetected) 03/19/23 08:01 U Marijuana (THC) Screen Not Detected (NotDetected) 03/19/23 08:01 Serum Alcohol <10 mg/dL 03/18/23 16:24 Coronavirus (PCR) Not Detected (Not Detectd) 03/19/23 07:45 Assessment Adjustment disorder with mixed disturbance of mood and conduct Cluster B personality disorder -narcissistic personality traits and borderline personality traits Rule out malingering Plan: -Patient continues to meet criteria for inpatient psychiatric admission for symptom stabilization and safety. Patient has signed adult voluntary form and medication consent and was placed in patient's chart. -Medications: Continue Lamictal 25 mg by mouth twice a day for mood stabilization Increase Seroquel to 150 mg by mouth at bedtime for mood stabilization -When necessary Ativan and an Haldol for agitation/aggression. -Patient displays narcissitic personality traits. Unwilling to engage in therapy or be confronted concerning her negative behaviors. Suspect patient is present for secondary gain. Anticipate discharge tomorrow. -NRT - nicotine patch -SW on board for discharge planning. Encouraged the patient to participate in milieu.
[2023-03-21] MEDS: IBUPROFEN 600 MG TAB PO PRN (14:53)
[2023-03-21] MEDS ORDERED: QUEtiapine 100 MG TAB PO SCH (21:00)
[2023-03-21] MEDS: ACETAMINOPHEN TAB 325 MG TAB PO PRN (21:08)
[2023-03-22] MEDS: LEVOTHYROXINE 100 MCG TAB PO SCH (06:47)
[2023-03-22 07:04] VITALS: BP 90/53; PULSE 80; RESP 16; TEMP 97.9
[2023-03-22] MEDS: lamoTRIgine 25 MG TAB PO SCH (08:21)
[2023-03-22] MEDS: ATORVASTATIN 20 MG TAB PO SCH (08:21)
[2023-03-22] MEDS: LORATADINE 10 MG TAB PO SCH (08:21)
[2023-03-22] MEDS: MONTELUKAST 10 MG TAB PO SCH (08:21)
[2023-03-22] MEDS: PANTOPRAZOLE 40 MG TABLET PO SCH (08:21)
[2023-03-22] MEDS: FLUTICASONE 50MCG/SPRAY NASAL 16GM EA NOSTRIL SCH (08:22)
[2023-03-22] MEDS: MELOXICAM 7.5 MG TAB PO PRN (08:23)
[2023-03-22] MEDS: hydrOXYzine pamoate 25 MG CAP PO PRN (08:23)
--- NOTE | 2023-03-22 11:26 | P.DS ---
Providers Date of admission: 03/19/23 10:26 Expected date of discharge: 03/22/23 Attending physician: Gurpreet Gunn MD Consults: 03/19/23 10:30 Consult Physician Routine Consulting Provider: Jose R Greer Consult Reason/Comments: H&P and medical Do you want consulting provider notified?: Yes Primary care physician: Reina Gaona - Discharge Diagnosis(es) (1) Acute adjustment disorder with mixed disturbance of emotions and conduct Current Visit: Yes Status: Acute Priority: High (2) Cluster B personality disorder Current Visit: Yes Status: Chronic Priority: Medium (3) Malingering Current Visit: Yes Status: Chronic Priority: Medium Hospital Course: Admission HPI: Patient is a , unemployed, 57-year-old homeless female who presents to the hospital on 03/19/2023 after intentionally overdosing on medication. Patient presented to the hospital initially on 03/18/23 however was discharged with an appropriate safety plan and to follow up with [facility] as she initially presented with concerns for her homelessness and suicidal ideation. However, the patient the patient became very agitated when being discharged and was yelling. Patient apparently went to the waiting room and overdosed on an unknown bottle of medication. The patient was administered charcoal and monitored in the emergency department overnight. She reported that this was an intentional suicide attempt. The patient was subsequently admitted voluntarily on to the psychiatric unit. Upon evaluation on the psychiatric unit, the patient reports that she is just "tired of everything." She reports that she wants help with her mental health because she "am not the same person after 2013 when numerous things happen to me." She reports that during that year, she was , lost her job, and had lost her mother due to cancer. The patient states that since then, she has been unable to function. She reports little support. She states that she is currently homeless. However, the patient is unable to provide any clear symptoms of depressive disorder or bipolar disorder. She just states that she wants help with her "mind because it is not working." She states that she is unable to function normally. The patient then states that if she is being igno red by this provider, she is going to get angry. She reports that if she gets angry she will do something like overdose again. She does not endorse any significant psychotic symptoms. She reports no auditory or visual hallucinations. She denies any paranoia or other delusions. Patient states that she is depressed, anxious, and bipolar. The patient has previous trials of numerous medications including Wellbutrin, Lamictal, Prozac, Vistaril. She reports previous to trying Risperdal as well. She reports a remote history of psychiatric hospitalization. She is currently open with [facility]. Patient has history of overdose. Hospital course: Upon admission to the unit patient was initially presenting as irritable, disheveled, and slow to cooperate. Patient was however directable and agreeable to commence treatment. However, the patient was quite confrontational and oppositional with staff and remained primarily isolative to herself and her and did not engage much with peers. She was started on a regimen of Lamictal and Seroquel for management of mood stability as the patient was noted to be very impulsive and angry. The patient's antidepressants were held because of over activation. This angered the patient even further. She began yelling numerous times to this provider. However, it is evident that the patient is primarily concerned about her housing situation and is not presenting with any overt psychiatric pathology. After being observed, there have been no signs or symptoms consistent with khoi, schizophrenia, depressive disorder, or any other psychiatric pathology that would warrant inpatient psychiatric admission. The patient's issues regarding her anger are primarily attributed to a personality disorder. The patient was educated on this however was not agreeable with this diagnosis. There is concern that the patient is here for secondary gain of housing as she is homeless and was recently discharged from the local detention after timing out after 6 months. On the day of discharge, the patient was informed that the treatment team will set up a plan for her to go to a different detention. She is agreeable to this. She was also reminded to address her issues with anger as this contributes to her difficulty in finding stable housing and receiving help. The patient acknowledges understanding. She is not reporting any suicidal or homicidal ideation, intention, and/or plan. She is not reporting any auditory or visual hallucinations. She denies any paranoia or other delusions. She denies any access to firearms or other weapons. She does not have a significant history of substance abuse however was counseled at great length on abstaining from all substances including alcohol, tobacco, marijuana, and all illicit drugs. She reported no medical issues or concerns on the day of discharge she denied any chest pain, sharp spell, palpitations, akathisia, or tardive dyskinesia. She was encouraged to follow-up with her outpatient appointments for primary care and for mental health. As the patient did not meet criteria for continued inpatient psychiatric hospitalization, she was subsequently discharged. Mental status exam: General Appearance: Patient appears to be stated age is alert, and is cooperative today. Patient is in no acute distress and has slightly disheveled hygiene and grooming Behavior: Patient is calmly seated without any agitated behavior. Eye contact is poor. Speech: Patient's speech is fluent and nonpressured. Mood/Affect: Patient reports their mood is "I'm okay", affect is congruent, euthymic, slightly irritable. Suicidality/Homicidality: Patient reports no suicidal or homicidal ideation, intention, and/or plan. Perceptions: Patient denies any auditory or visual hallucinations. Though content/process: There is no evidence of any delusional thought content and thought process is linear and goal-directed. Fixated on housing situation. Memory and concentration: AOX3, grossly intact for the purposes of this session. Can spell "WORLD" backwards correctly. Judgment and insight: Improved with guarded prognosis Impression: Adjustment disorder with mixed disturbance of mood and conduct Cluster B personality disorder -narcissistic personality traits and borderline personality traits Malingering - secondary gain of housing Plan: -Continue with discharge today as patient has improved and stabilized ps ychiatrically and is not currently an imminent threat to herself and/or others. She will remain at chronically elevated risk of harm to self and/or others due to her poor frustration tolerance and impulse control secondary to her underlying personality disorder -Continue medications: Seroquel 150 mg by mouth at bedtime for mood stabilization/impulsivity Lamictal 25 mg by mouth twice a day for mood stabilization -The patient was provided introduction to dialectical behavioral therapy however was not willing to engage in therapy at this time. -Patient was counseled on the need for medication compliance and appropriate follow-up at mental health and also primary care for medical issues. Patient verbalized understanding and agreed. -Social work to arrange for and conduct family meeting to ensure safety upon discharge and answer any questions/concerns. Social work also to arrange for patients follow up appointments for psychiatric care along with follow up with primary care provider. -Patient counseled on abstaining from recreational drugs and marijuana and alcohol. Was informed/educated on the adverse effects on their physical and mental health. Patient verbally agreed and understood. -Patient was instructed to return to the hospital or seek immediate medical care if their psychiatric or medical symptoms do worsen or reoccur. -Psychoeducation and supportive therapy provided to patient. Risks and benefits of pharmacological treatment versus the risks and benefits of nontreatment weighed and discussed. Informed consent discussion held. Common side effects of psychotropics discussed such as, but not limited to headache, GI disturbance, sexual dysfunction, movement disorders, sedation, and orthostatic hypotension. Life threatening and blackbox warnings of prescribed medications also discussed. Potential risks of operating a vehicle or heavy machinery discussed with patient at length. Advised on importance of compliance and a reliable and responsible manner. Patient advised to review FDA consumer labeling of all medications prior to taking. Patient verbalized understanding of potential risks, and agrees with current treatment plan. Patient advised to medically contact physician/emergency personnel if any acute changes in condition occur. Vital Signs Temp 97.9 F 03/22/23 06:00 Pulse 80 03/22/23 06:00 Resp 16 03/22/23 06:00 BP 90/53 03/22/23 06:00 Pulse Ox 94 L 03/22/23 06:00 FiO2 Laboratory Results WBC 11.7 k/uL (3.8-10.6) H 03/18/23 16:24 RBC 4.74 m/uL (3.80-5.40) 03/18/23 16:24 Hgb 13.3 gm/dL (11.4-16.0) 03/18/23 16:24 Hct 39.6 % (34.0-46.0) 03/18/23 16:24 MCV 83.6 fL (80.0-100.0) 03/18/23 16:24 MCH 28.0 pg (25.0-35.0) 03/18/23 16:24 MCHC 33.5 g/dL (31.0-37.0) 03/18/23 16:24 RDW 15.4 % (11.5-15.5) 03/18/23 16:24 Plt Count 306 k/uL (150-450) 03/18/23 16:24 MPV 7.2 03/18/23 16:24 Neutrophils % 51 % 03/18/23 16:24 Lymphocytes % 36 % 03/18/23 16:24 Monocytes % 5 % 03/18/23 16:24 Eosinophils % 4 % 03/18/23 16:24 Basophils % 1 % 03/18/23 16:24 Neutrophils # 6.0 k/uL (1.3-7.7) 03/18/23 16:24 Lymphocytes # 4.2 k/uL (1.0-4.8) 03/18/23 16:24 Monocytes # 0.6 k/uL (0-1.0) 03/18/23 16:24 Eosinophils # 0.4 k/uL (0-0.7) 03/18/23 16:24 Basophils # 0.1 k/uL (0-0.2) 03/18/23 16:24 Sodium 137 mmol/L (137-145) 03/18/23 16:24 Potassium 4.2 mmol/L (3.5-5.1) 03/18/23 16:24 Chloride 102 mmol/L (98-107) 03/18/23 16:24 Carbon Dioxide 23 mmol/L (22-30) 03/18/23 16:24 Anion Gap 12 mmol/L 03/18/23 16:24 BUN 12 mg/dL (7-17) 03/18/23 16:24 Creatinine 0.80 mg/dL (0.52-1.04) 03/18/23 16:24 Est GFR (CKD-EPI)AfAm >90 (>60 ml/min/1.73 sqM) 03/18/23 16:24 Est GFR (CKD-EPI)NonAf 81 (>60 ml/min/1.73 sqM) 03/18/23 16:24 Glucose 128 mg/dL (74-99) H 03/18/23 16:[address] Glu mg/dL 131 mg/dL 03/18/23 16:24 Hemoglobin A1c 6.2 % (<=6.0) H 03/18/23 16:24 Calcium 9.7 mg/dL (8.4-10.2) 03/18/23 16:24 Magnesium 2.3 mg/dL (1.6-2.3) 03/18/23 16:24 Total Bilirubin 0.5 mg/dL (0.2-1.3) 03/18/23 16:24 AST 42 U/L (14-36) H 03/18/23 16:24 ALT 58 U/L (4-34) H 03/18/23 16:24 Alkaline Phosphatase 154 U/L (38-126) H 03/18/23 16:24 Total Protein 7.5 g/dL (6.3-8.2) 03/18/23 16:24 Albumin 4.3 g/dL (3.5-5.0) 03/18/23 16:24 Triglycerides 173.00 mg/dL (0.00-149.00) H 03/18/23 16:24 Cholesterol 284.00 mg/dL (0.00-200.00) H 03/18/23 16:24 LDL Cholesterol, Calc 170.5 mg/dL (0.0-131.0) H 03/18/23 16:24 VLDL Cholesterol, Calc 34.60 mg/dL (5.00-40.00) 03/18/23 16:24 HDL Cholesterol 78.90 mg/dL (40.00-60.00) H 03/18/23 16:24 Cholesterol/HDL Ratio 3.60 Ratio 03/18/23 16:24 Lipase 95 U/L (23-300) 03/18/23 16:24 TSH 5.070 mIU/L (0.465-4.680) H 03/18/23 16:24 Urine Color Light Red 03/19/23 08:01 Urine Appearance Clear (Clear) 03/19/23 08:01 Urine pH 6.5 (5.0-8.0) 03/19/23 08:01 Ur Specific [place] 1.025 (1.001-1.035) 03/19/23 08:01 Urine Protein Trace (Negative) H 03/19/23 08:01 Urine Glucose (UA) Negative (Negative) 03/19/23 08:01 Urine Ketones Negative (Negative) 03/19/23 08:01 Urine Blood Negative (Negative) 03/19/23 08:01 Urine Nitrite Negative (Negative) 03/19/23 08:01 Urine Bilirubin Negative (Negative) 03/19/23 08:01 Urine Urobilinogen <2.0 mg/dL (<2.0) 03/19/23 08:01 Ur Leukocyte Esterase Large (Negative) H 03/19/23 08:01 Urine RBC 5 /hpf (0-5) 03/19/23 08:01 Urine WBC 35 /hpf (0-5) H 03/19/23 08:01 Ur Squamous Epith Cells 4 /hpf (0-4) 03/19/23 08:01 Urine Bacteria Rare /hpf (None) H 03/19/23 08:01 Salicylates <1.0 mg/dL 03/18/23 16:24 Urine Opiates Screen Not Detected (NotDetected) 03/19/23 08:01 Ur Oxycodone Screen Not Detected (NotDetected) 03/19/23 08:01 Urine Methadone Screen Not Detected (NotDetected) 03/19/23 08:01 Ur Propoxyphene Screen Not Detected (NotDetected) 03/19/23 08:01 Acetaminophen <10.0 ug/mL 03/18/23 16:24 Ur Barbiturates Screen Not Detected (NotDetected) 03/19/23 08:01 U Tricyclic Antidepress Not Detected (NotDetected) 03/19/23 08:01 Ur Phencyclidine Scrn Not Detected (NotDetected) 03/19/23 08:01 Ur Amphetamines Screen Not Detected (NotDetected) 03/19/23 08:01 U Methamphetamines Scrn Not Detected (NotDetected) 03/19/23 08:01 U Benzodiazepines Scrn Detected (NotDetected) H 03/19/23 08:01 Urine Cocaine Screen Not Detected (NotDetected) 03/19/23 08:01 U Marijuana (THC) Screen Not Detected (NotDetected) 03/19/23 08:01 Serum Alcohol <10 mg/dL 03/18/23 16:24 Coronavirus (PCR) Not Detected (Not Detectd) 03/19/23 07:45 Allergies Allergy/AdvReac Type Severity Reaction Status Date / Time No Known Allergies Allergy Verified 03/19/23 13:53 Patient Condition at Discharge: Stable Plan - Discharge Summary Discharge Rx Participant: No New Discharge Prescriptions: New Atorvastatin [Lipitor] 20 mg PO DAILY 15 Days #15 tab QUEtiapine [SEROquel] 150 mg PO HS 14 Days #21 tab Loratadine [Claritin] 10 mg PO DAILY 15 Days #15 tab lamoTRIgine [LaMICtal] 25 mg PO BID 1 Days #14 tab Levothyroxine Sodium [Synthroid] 100 mcg PO DAILY@0630 15 Days #15 tab Continue Lansoprazole [Prevacid 24Hr] 15 mg PO DAILY Ergocalciferol [Vitamin D2 (1250 Mcg = 25361 Iu)] 1,250 mcg PO WEEKLY Fluticasone Nasal Era [Flonase Nasal Era] 1 spr EA NOSTRIL DAILY Montelukast [Singulair] 10 mg PO DAILY Calcium Carb/Magnesium Hydrox [Rolaids Ext Str 675-135 mg Chw] 1 each PO TID- W/MEALS PRN PRN Reason: heartburn Meloxicam [Mobic] 15 mg PO DAILY PRN 15 Days #15 tab PRN Reason: Pain Discontinued hydrOXYzine HCL [Atarax] 50 mg PO DAILY PRN PRN Reason: Anxiety Levothyroxine Sodium 100 mcg PO DAILY Lurasidone [Latuda] 20 mg PO DAILY Loratadine 10 mg PO DAILY lamoTRIgine [LaMICtal] 200 mg PO DAILY FLUoxetine HCL 60 mg PO DAILY buPROPion XL [Wellbutrin XL] 300 mg PO DAILY Atorvastatin [Lipitor] 20 mg PO DAILY Discharge Medication List Ergocalciferol [Vitamin D2 (1250 Mcg = 36578 Iu)] 1,250 mcg PO WEEKLY 03/18/23 [History] Fluticasone Nasal Era [Flonase Nasal Era] 1 spr EA NOSTRIL DAILY 03/18/23 [History] Montelukast [Singulair] 10 mg PO DAILY 03/18/23 [History] Calcium Carb/Magnesium Hydrox [Rolaids Ext Str 675-135 mg Chw] 1 each PO TID- W/MEALS PRN 03/19/23 [History] Lansoprazole [Prevacid 24Hr] 15 mg PO DAILY 03/19/23 [History] Atorvastatin [Lipitor] 20 mg PO DAILY 15 Days #15 tab 03/22/23 [Rx] Levothyroxine Sodium [Synthroid] 100 mcg PO DAILY@0630 15 Days #15 tab 03/22/23 [Rx] Loratadine [Claritin] 10 mg PO DAILY 15 Days #15 tab 03/22/23 [Rx] Meloxicam [Mobic] 15 mg PO DAILY PRN 15 Days #15 tab 03/22/23 [Rx] QUEtiapine [SEROquel] 150 mg PO HS 14 Days #21 tab 03/22/23 [Rx] lamoTRIgine [LaMICtal] 25 mg PO BID 1 Days #14 tab 03/22/23 [Rx] Follow up Appointment(s)/Referral(s): Reina Gaona MD [Primary Care Provider] - 1-2 days Activity/Diet/Wound Care/Special Instructions: Avoid the use of street drugs and alcohol. Take all medications as prescribed. When you are in need of refills on your medications, please contact your medical provider and/or outpatient psychiatrist/provider to have this done. Please go to your scheduled outpatient appointment for aftercare treatment. If symptoms return or become worse, call the crisis line at and/or go to the nearest emergency room for evaluation. National Suicide Hotline 195. Discharge Disposition: HOME SELF-CARE
[2023-03-25] MEDS ORDERED: ERGOCALCIFEROL 1,250 MCG (50,000 IU) CAPSULE PO SCH (09:00)
== END 2023-03-22 15:26 | disposition home or self-care (01) | DRG 817 ==
LOC: EC 16:06 → 3MHU 03-19 10:26
PROVIDERS: ADMIT Psychiatry & Neurology Psychiatry; ATTEND Psychiatry & Neurology Psychiatry
DX: T50.902A Poisoning by unspecified drugs, medicaments and biological substances, intentional self-harm, initial encounter (principal); F60.81 Narcissistic personality disorder; F60.3 Borderline personality disorder; E03.9 Hypothyroidism, unspecified; I10 Essential (primary) hypertension; F43.25 Adjustment disorder with mixed disturbance of emotions and conduct; F17.210 Nicotine dependence, cigarettes, uncomplicated; E78.5 Hyperlipidemia, unspecified; R73.03 Prediabetes; E07.9 Disorder of thyroid, unspecified; Z20.822 Contact with and (suspected) exposure to COVID-19; Z76.5 Malingerer [conscious simulation]; Z59.00 Homelessness unspecified; Z56.0 Unemployment, unspecified; Z79.899 Other long term (current) drug therapy; Z79.890 Hormone replacement therapy; Z79.1 Long term (current) use of non-steroidal anti-inflammatories (NSAID)
CPT/HCPCS: 36415; 71046; 80053; 80061; 80143; 80179; 80306; 80320; 81001; 82075; 83036; 83690; 83735; 84443; 85025; 87635; 93005; 99285